=== PATIENT | male | born 1950 | race Caucasian/White ===

== ENCOUNTER 2019-10-28 12:33 | Inpatient (IN) | payer MEDICARE ==
[2019-10-28] MEDS ORDERED: Iopamidol-370 76% 500 ML 1 ML ONE (12:43)
[2019-10-28] MEDS ORDERED: Midazolam HCl 5 mg/ml Vial ONE (12:47)
[2019-10-28] MEDS ORDERED: fentaNYL Citrate/PF 2,000 MCG in Sodium Chloride 0.9% 60 ML IV SCH ×2 (12:48→16:12)
[2019-10-28 12:59] LABS: Hemoglobin 17.9 g/dL (14.0-18.0); Mean Corpuscular Hemoglobin 29.9 pg (27.0-31.0); Mean Corpuscular Volume 93.3 fL (78.0-98.0); Mean Platelet Volume 7.5 fL (7.4-10.4); Platelet Count 352 thou/uL (130-400); Red Blood Cell (RBC) Count 5.99 mill/uL (4.70-6.10); White Blood Cell (WBC) Count 22.5 thou/uL (4.8-10.8)
--- NOTE | 2019-10-28 12:59 | RAD ---
Chest one view HISTORY: Respiratory failure. FINDINGS: There is leftward deviation of the cardiac silhouette and mediastinum. Right lung is comple tely collapsed. Gas within the right pleural cavity extends across the midline into the left hemithorax. There is crowding of the pulmonary vessels at the left lung. Tip of nasogastric tube overlies the thoracic inlet just to the left of midline. IMPRESSION: Very large right tension pneumothorax. Findings were called to Dr. Christianson in the emergency department at 1239 hours. Code CR.
[2019-10-28 13:12] LABS: Actual Bicarbonate (HCO3a) 23.9 mEq/L (22-28); Analyzer IN Cardio ER; Base Excess (BEa) -4.2 mEq/L (-2.0 to +3.0); CO2 Tension 54.4 mmHg (35.0-45.0); Calcium, Ionized 1.17 mmol/L (1.12-1.30); O2 Tension (PaO2) 101.7 mmHg (> 80.0); Potassium - ABG Lab 4.53 mmol/L (3.70-5.30); pH, Arterial 7.26 (7.35-7.45)
[2019-10-28 13:16] LABS: Puncture Site LBA
[2019-10-28 13:18] LABS: ALT (SGPT) 115 U/L (8-55); AST (SGOT) 87 U/L (5-34); Albumin 4.4 g/dL (3.4-4.8); Alkaline Phosphatase 119 U/L (40-110); Anion Gap 21 mmol/L (10-20); BUN (Urea Nitrogen) 20 mg/dL (8.4-25.7); Bilirubin, Total 0.5 mg/dL (0.2-1.2); CK (CPK) 267 U/L (30-200); Calc. Creatinine Clearance 0 mL/min (70-130); Calcium 9.2 mg/dL (7.8-10.44); Carbon Dioxide 23 mmol/L (23-31); Chloride 95 mmol/L (98-107); Estimated GFR-MDRD 38; Globulin 3.4 g/dL (2.4-3.5); Lipase 52 U/L (8-78); Protein, Total 7.8 g/dL (5.8-8.1); Sodium 134 mmol/L (136-145)
[2019-10-28 13:25] LABS: Band 3 % (5-11); Lymphocytes 14 % (21-51); MDiff Complete? YES; Metamyelocyte 1 % (0-0); Myelocyte 1 % (0-0); Neutrophil 81 % (42-75); RBC Morphology Normal
[2019-10-28 13:27] LABS: Glucose 277 mg/dL (80-115)
[2019-10-28] MEDS ORDERED: Norepinephrine 8 MG/0.9% NS 0 ML ONE (13:42)
[2019-10-28] MEDS ORDERED: Diltiazem 125 MG/25 ML ONE (13:42)
[2019-10-28 13:46] LABS: CKMB 5.6 ng/mL (0-6.6)
--- NOTE | 2019-10-28 14:09 | RAD ---
PORTABLE CHEST: DATE: 10/28/2019. PROVIDED CLINICAL HISTORY: Shortness of breath. FINDINGS: Comparison is made with the examination performed earlier same date. Interval placement of right-lise ed chest tube with reduction in degree of right-sided pneumothorax. Interval placement of enteric ca theter, the distal aspects of which are not well visualized but appear likely below the diaphragm. E ndotracheal tube persists, the tip of which is likely above the amina, though the amina is not well visualized on this exam. The left lung remains clear. IMPRESSION: Reduction in size of right pneumothorax status post chest tube placement. POS: TPC
--- NOTE | 2019-10-28 14:18 | RAD ---
EXAM: CHEST ONE VIEW: 10/28/19 HISTORY: Central line placement. FINDINGS: A right sided central line has been placed with the tip in the superior vena cava. Small caliber righ t Heimlich valve catheter is in place with very minute residual right inferior pneumothorax with some subcutaneous emphysema. NG tube is noted with the tip at the GE junction region and probably should be advanced so that the side hole is completely within the stomach. Endotracheal tube is in satisfact ory location. Minimal streaky linear parenchymal changes in the right lung. No significant acute proc ess in the left chest. IMPRESSION: Small residual right sided pneumothorax following small caliber Heimlich valve catheter placement. Pa tchy parenchymal changes in the right lung probably some partial atelectasis. Stable appearing left c hest. NG tube with the tip just at the GE junction region and should probably be advanced to allow mo re optimal positioning of the side hole entering the stomach. POS: ROBERT
[2019-10-28] MEDS ORDERED: Diltiazem 125 MG in Sodium Chloride 0.9% 100 ML IVPB SCH ×2 (14:45→16:15)
--- NOTE | 2019-10-28 15:05 | CT ---
CT angiogram chest with IV contrast and 3-D imaging HISTORY: Pneumothorax. Chest pain. Dyspnea. Recent surgery. FINDINGS: There is good contrast opacification central pulmonary arteries without filling defect appa rent. Partial opacification of the aortic arch with normal branching great vessels. Minimal pericardial fluid along the superior pericardial reflection. Right thoracostomy tube is in place with large residual right pneumothorax. Extensive atelectasis of the posterior aspect of the right lung which may represent residua of the right lower lobe. Postoperative changes are apparent, with short metallic stent-like objects in the collapsed right pos terior lung tissue. Remaining lung tissue bilaterally shows emphysematous changes with peripheral bullae. Endotracheal catheter is in good CT position with some mucus material at the distal portion. Nasogast benita tube extends into the upper stomach with the proximal port just above the level of the GE junction. IMPRESSION: No CT evidence of pulmonary embolus. Large residual right pneumothorax. Extensive atelectasis at the right lung base with postoperative ch anges/internal stent material. Emphysema. Nasogastric tube should probably be advanced approximately 10 cm for better positioning.
[2019-10-28] MEDS ORDERED: Acetaminophen 325 MG TAB PO PRN (15:55)
[2019-10-28] MEDS ORDERED: Ondansetron ODT 4 MG TAB PO PRN (15:55)
[2019-10-28] MEDS ORDERED: Acetaminophen 650 MG Suppository PR PRN (15:55)
[2019-10-28] MEDS ORDERED: Ondansetron PF 4 MG/2 ML Vial IVP PRN (15:55)
[2019-10-28] MEDS ORDERED: Senokot S 8.6-50 MG TAB PO PRN (15:55)
[2019-10-28] MEDS ORDERED: Guaifenesin DM 100-10/5 ML UDCUP PO PRN (15:55)
[2019-10-28] MEDS ORDERED: Ventilator Sedation Protocol 1 EACH FS SCH (16:00)
[2019-10-28] MEDS ORDERED: Digoxin 0.5 MG/2 ML AMP ONE (16:03)
[2019-10-28] MEDS ORDERED: Lorazepam 2 MG/ML VIAL ONE (16:09)
[2019-10-28] MEDS: Lorazepam 2 MG/ML VIAL SLOW IVP PRN (16:11)
[2019-10-28] MEDS ORDERED: Propofol BOLUS 1,000 MG/100 ML VIAL IV PRN (16:12)
[2019-10-28] MEDS ORDERED: Morphine 2 MG/ML SYRINGE SLOW IVP PRN (16:12)
[2019-10-28] MEDS ORDERED: DISCONTINUE PREVIOUS NARCOTIC PAIN MEDICATIONS AND BENZODIAZEPINES FS SCH (16:12)
[2019-10-28] MEDS ORDERED: Fentanyl BOLUS 250 ML IVPB PRN (16:12)
[2019-10-28] MEDS ORDERED: Digoxin 0.5 MG/2 ML AMP SLOW IVP SCH (16:15)
[2019-10-28] MEDS: Cefepime 1 GM in Sodium Chloride 0.9% 100 ML IVPB SCH (16:23)
[2019-10-28] MEDS: methylPREDNISolone Sod Succ 40 MG VIAL IVP SCH ×2 (16:23→20:34)
[2019-10-28] MEDS: Amiodarone 450 MG in Dextrose 5% in Water 250 ML IVPB SCH ×2 (16:24→22:54)
--- NOTE | 2019-10-28 16:28 | CON ---
DATE OF CONSULTATION: HISTORY OF PRESENT ILLNESS: Jodie Alvarado is a 69-year-old gentleman, who is presently intubated on the vent. History is obtained from talking to his , who states that they live in [facility], they were dropped out of [facility]. About a week ago, he had 8 volume reduction valves inserted in the right lower lobe in [place], 2 removed. He underwent a bronchoscopy and some mucus was siphoned out of his lower lobe where the valves are placed in. According to his , he quit smoking about 10 years ago. Longstanding history of tobacco abuse, at least a pack a day. Previous history of right-sided pneumonia, complicated by pneumothorax 10 years ago. Prior to the valve procedure, he was able to walk maybe 20 feet. Following the procedure, according to the , he was able to walk 50 feet without getting markedly short of breath. This morning, he woke up with marked shortness of breath. X-ray shows right-sided pneumothorax. He was to be life-flighted to [place]. Because of the bad weather, he was transferred over here to [facility] in [place], [place]. PAST MEDICAL HISTORY: As per the , pertinent for hypertension and COPD. CHRONIC MEDICATIONS: 1. Trelegy inhaler. 2. Symbicort inhaler. 3. Rescue inhaler. 4. Low-flow O2. 5. Unknown blood pressure medication. PREVIOUS SURGERIES: He has a history of prostate surgery and penile prosthesis. ALLERGIES: APPARENTLY UNKNOWN. SOCIAL HISTORY: Otherwise unremarkable. REVIEW OF SYSTEMS: Otherwise unobtainable. PHYSICAL EXAMINATION: VITAL SIGNS: His blood pressure is 98/60 systolic. He is on Cardizem 15 mg/hr. His saturations are 98%. His pulse is 120. He is sedated on ventilator. Respiratory rate is 20. CHEST: Decreased breath sounds. No wheezing. CARDIAC: Normal S1 and S2. No gallops. ABDOMEN: No masses. LABORATORY DATA: White count 20,000, hemoglobin 7, hematocrit 55, platelet count 352. PO2 is 101, pCO2 of 54, PH 7.26, 60%, rate of 14, 5 tidal volume. Creatinine 1.78. Troponin is slightly elevated. ALT is elevated at 115. IMAGING STUDIES: Chest x-ray shows the previously described right-sided chest tube. Left lobe was clear. Right-sided nonspecific infiltrates. A small-bore chest tube was inserted. He still got a little bit of residual pneumothorax. He has a set of central line is in place. IMPRESSION: 1. The patient has spontaneous pneumothorax. 2. Multiple endobronchial valves for severe chronic obstructive pulmonary disease, right lower lung 6. 3. Recent supraventricular tachycardia. 4. Hypertension. 5. Former smoker. PLAN: 1. Antibiotics were initiated along with steroids and neb treatments. 2. CV Surgery is consulted to insert a large chest tube since his lung is now re-expanded. 3. Start amiodarone drip. 4. Continue IV fluids, supportive care. When stable, consider transferring back to [facility] as per the family's wishes. TIME SPENT: This is a 45-minute critical time. Job ID: [id number]
[2019-10-28 16:35] LABS: Actual Bicarbonate (HCO3a) 23.9 mEq/L (22-28); Base Excess (BEa) -2.7 mEq/L (-2.0 to +3.0); CO2 Tension 48.1 mmHg (35.0-45.0); Calcium, Ionized 1.12 mmol/L (1.12-1.30); Carboxyhemoglobin (COHb) 0.5 gm% (0.0-3.0); Hemoglobin (Hb) 15.9 g/dL (14.0-18.0); O2 Tension (PaO2) 68.9 mmHg (> 80.0); Potassium - ABG Lab 3.81 mmol/L (3.70-5.30); pH, Arterial 7.31 (7.35-7.45)
[2019-10-28 16:37] LABS: ALV-art Gradient 156.175 (0-20); Puncture Site RR
[2019-10-28] MEDS ORDERED: Lidocaine 1% (PF) 30 ML VIAL ONE (16:38)
[2019-10-28] MEDS: Propofol 1,000 MG/100 ML VIAL IV PRN (16:42)
[2019-10-28 16:50] VITALS: BMI 26.9
--- NOTE | 2019-10-28 17:26 | RAD ---
PORTABLE CHEST ONE VIEW: 10/28/19 HISTORY: Respiratory failure, chest tube insertion FINDINGS/IMPRESSION: Comparison with earlier exam of 1:10 p.m. The right sided pleural catheter has been removed. A right sided chest tube has been placed in the in terim. The remainder of the exam is otherwise stable. POS: OFF
[2019-10-28] MEDS ORDERED: methylPREDNISolone Sod Succ 40 MG VIAL IVP SCH (18:00)
--- NOTE | 2019-10-28 18:35 | HP ---
PRIMARY CARE PHYSICIAN: [facility]. CHIEF COMPLAINT: Pneumothorax, intubated in the field. HISTORY OF PRESENT ILLNESS: The patient was seen on arrival into the ICU. No family at bedside currently. History was obtained from speaking with Dr. Galeas and the ER physician as well as the chart. This is a 69-year-old white male, who lives from [facility]. He had 8 volume reduction valves inserted in his right lower lobe in [place] a week ago, and 2 of them were removed. Also, underwent a bronchoscopy, and some mucus was siphoned out of his lower lobe. After the procedure, his dyspnea on exertion improved, and he was able to walk further without getting short of breath; however, this morning , he woke up with marked shortness of breath. He was noted to have a right-sided pneumothorax and was life-flighted to [place]; however, because of bad weather, they had to redirect here. The patient was reportedly discolored when EMS saw him. He was put on CPAP nonrebreather with no help, and so, he was intubated by EMS on first attempt. He was also noted to be in atrial fibrillation within the 190s initially, down to the 140s to 150s by the time he arrived at our hospital. He did have a chest tube placed with some improvement in the right-sided pneumothorax, but still persistent pneumothorax present. On arrival in our ER, he was stabilized, and Dr. Galeas with Pulmonology was consulted as well as Dr. Doherty with Cardiothoracic Surgery. The patient was admitted and is now in the ICU. PAST MEDICAL HISTORY: 1. COPD. 2. Hypertension. PAST SURGICAL HISTORY: 1. Valves placed in right lower lobe of the lung. 2. Penile implant. 3. Prostatectomy. SOCIAL HISTORY: The patient is a former alcoholic, quit 5 years ago. He used to smoke cigarettes, quit more than 10 years ago. No illicit drug use. He lives with his . He is a full code. His is his medical decision maker. FAMILY HISTORY: Unable to obtain secondary to the patient's sedation and intubation. ALLERGIES: NO KNOWN DRUG ALLERGIES. CURRENT MEDICATIONS: does not have his medications with him right now, but was able to list some of his nebs that he was on for Dr. Galeas including Trelegy inhaler, Symbicort inhaler, rescue inhaler, low-flow O2 at home as needed, and an unknown blood pressure medication. She will try and obtain those medications and bring them to the hospital. REVIEW OF SYSTEMS: Unable to obtain secondary to the patient's mental status and intubation on the vent. PHYSICAL EXAMINATION: VITAL SIGNS: Blood pressure 103/73, pulse 116, O2 saturation 97% on the mechanical ventilator, temperature 98.7. GENERAL: This is a well-developed, well-nourished, white male, who is sedated on the vent. Still able to make some purposeful movements and obey commands when redirected. HEENT: Pupils are equal, round, and reactive to light. Oropharynx with ET tube in place. NECK: Supple. No lymphadenopathy. No thyroid nodules or enlargement. No deviation of the trachea currently. HEART: Irregularly irregular rhythm. Mildly tachycardic. No murmurs. LUNGS: He has decent breath sounds bilaterally, but mildly decreased on the right. No focal crackles or rhonchi. ABDOMEN: Mildly distended. Nontender to palpation. Hypoactive bowel sounds. No organomegaly palpable. EXTREMITIES: No clubbing, cyanosis, or edema. He has good peripheral pulses. SKIN: No rashes or other lesions noted. NEUROLOGIC: The patient is moving all extremities to stimulation. There is no obvious facial droop or lateralizing signs. LABORATORY DATA: CBC with a white blood cell count of 22,000, 81% neutrophils, 3% bands. The rest of his CBC was grossly normal. Arterial blood gas on the vent shows pH of 7.3, pCO2 of 48, and pO2 of 68. Complete metabolic panel is notable for sodium of 134, chloride of 95, anion gap of 21, creatinine of 1.78, glucose of 277, AST of 87, ALT of 115, alkaline phosphatase of 119. Creatine kinase of 267. His troponin was elevated at 0.383. CK-MB was normal at 5.6. CT of the chest/thorax done in the emergency room shows no evidence of pulmonary emboli. There was a large residual right pneumothorax and extensive atelectasis in the right lung base with postoperative changes and internal stent material, also with emphysema. Chest x-ray: I reviewed his chest x-rays done in the emergency room. He had several. Most recent one shows a small residual right-sided pneumothorax after a small-caliber Heimlich valve catheter placed. Also, some patchy parenchymal changes in the right lung, probably partial atelectasis. Stable-appearing chest tube and a right-sided central line with the tip in the superior vena cava. ASSESSMENT: 1. Pneumothorax, status post decompression with chest tube placement. CT Surgery and Dr. Venegas have been consulted. The patient is currently on the ventilator. He is critically ill. He has previously been accepted to his hospital in [place] and will likely need to be transferred there once he can be stabilized enough to either go by [employer] or the weather clears the path to send him via helicopter. I appreciate the assistance of the Pulmonology and CT Surgery. 2. Atrial fibrillation with rapid ventricular response. This is improved with improving of the pneumothorax. No known history of atrial fibrillation before. Likely, due to the stress, pneumothorax, and pre-existing chronic obstructive pulmonary disease. The patient is currently on diltiazem drip with decent control of heart rate and can titrate that up as needed. We will consult Cardiology, Dr. Venegas to assist with management of this patient. 3. Acute myocardial infarction, likely type 2 secondary to severe strain of tachycardia and the pneumothorax. We will continue to monitor cardiac markers and telemetry. 4. Acute respiratory failure with hypoxia and hypercapnea. Intubated and ventilated, Dr. Galeas following. 5. Chronic obstructive pulmonary disease. 6. Hypertension. We will obtain home medication list and treat as needed. 7. Gastrointestinal prophylaxis. Put the patient on Pepcid twice a day. 8. Deep venous thrombosis prophylaxis. Put the patient on enoxaparin subcutaneously daily and sequential compression devices. CODE STATUS: The patient is a full code. His medical decision maker is his , her name is Dipika Alvarado. Job ID: [id number] [facility]
[2019-10-28] MEDS: Bacteriostatic Water 30 ML VIAL FS PRN (20:34)
--- NOTE | 2019-10-28 20:39 | CON ---
DATE OF CONSULTATION: 10/28/2019 I was asked by Dr. Galeas to see Mr. Alvarado post having had a near [id number] arrest. Apparently, he had multiple endobronchial blockers placed as a method of lung volume reduction to treat COPD. Two of these were removed shortly after placement. The patient was at home with his driving when he became short of breath, sweaty and asked for her to call for an ambulance. The ambulance arrived approximately 5 minutes later and intubated him on the scene. He was placed in the helicopter and they tried to fly him to [place] to his primary warehouse driver, but they had difficulty with whether and came here. On his evaluation here, he had a CT angio performed of the chest, which showed no pulmonary embolism, but did show large right pneumothorax, which was confirmed on chest x-ray. He had a small bore right chest tube placed with partial re-expansion of his lung. Dr. Galeas has asked me to see him for chest tube placement. PAST MEDICAL HISTORY: 1. COPD. 2. Hypertension. PAST SURGICAL HISTORY: Unknown. CURRENT MEDICATIONS: Unknown. ALLERGIES: NONE. PHYSICAL EXAMINATION: GENERAL: The patient is sedated, intubated in the ICU. LUNGS: Have equal breath sounds bilaterally. He has a right small bore pneumothorax kit tube, which is on intermittent suction. HEART: Rhythm is regular at this point,-he had atrial fibrillation earlier this afternoon, which he has spontaneously converted from. ABDOMEN: Soft. EXTREMITIES: There is no edema. I have reviewed his CT and chest x-rays. PLAN: Is to replace his right-sided tube with a 28-[place] chest tube. I discussed this with his . Job ID: [id number]
[2019-10-28] MEDS ORDERED: Enoxaparin Sodium 40 MG/0.4 ML SYRINGE SC SCH (21:00)
[2019-10-28] MEDS ORDERED: Famotidine/PF 20 mg/2ml Vial SLOW IVP SCH (21:00)
--- NOTE | 2019-10-28 23:57 | CON ---
DATE OF CONSULTATION: 10/28/2019 INDICATION FOR CONSULTATION: A 69-year-old patient, who has had pneumothorax. He has had multiple problems with his lungs. He has undergone some type of intervention to the lower lung areas, where he has some type of valve placed. Apparently, he has been treated in [place]. This morning, he became markedly short of breath, unable to walk and then was transferred here for chest x-ray. Actually, he was planned to be air flighted to [place] but due to weather, he had to be rerouted here. Chest x-ray shows right-sided pneumothorax. Large chest tube has been placed. During the time of pneumothorax and hypoxemia, he developed atrial fibrillation with rapid ventricular response. Since his chest tube has been in place, hypoxemia has improved. He was started on IV diltiazem, was given one dose of IV digoxin and also has been placed on IV amiodarone. He has converted back to sinus rhythm. At this time, I have seen him. He is in sinus rhythm and according to what I read and the family, he has had no history of atrial fibrillation in the past. PAST MEDICAL HISTORY: Significant for COPD. He has hypertension but no previous cardiac history otherwise that we are aware of. The family is not available at this time, but this is according to the records that I am reviewing and from talking to the nut feeder. He has had prostate surgery, as well as penile prosthesis in the past. ALLERGIES: NONE. MEDICATIONS: Include mainly inhalers and some type of blood pressure medication. SOCIAL HISTORY: Unremarkable. Otherwise unknown. REVIEW OF SYSTEMS: Unobtainable. PHYSICAL EXAMINATION: GENERAL: Reveals an elderly gentleman, who is on the ventilator at this time. Chest tube is in place. He is in sinus rhythm. Blood pressure is on the low side, but has improved. VITAL SIGNS: Blood pressure is low at 88/63, heart rate is in the 70s and sinus rhythm, O2 saturation is 98%, and respiratory rate is 28. HEENT: Shows the head to be normocephalic and atraumatic. Carotid pulses are present. I did not hear any bruits, but there is increased airway noise from the respirator. CHEST: Decreased breath sounds throughout. He has right-sided chest tube in place. CARDIOVASCULAR: Heart rate is regular, but very very distant heart sounds, almost inaudible, but I did not elicit any gross murmurs. ABDOMEN: Unremarkable. Positive bowel sounds are present. EXTREMITIES: Show no clubbing, cyanosis, or edema. Pedal pulses are decreased , but appear to be present. NEUROLOGICAL: Obviously, the patient is on the ventilator and is sedated or at least on the ventilator and appears to be somewhat sedated. LABORATORY DATA: Shows WBC of 22.5, with a hemoglobin 17.9, platelet count was 352,000, hematocrit 55.9. His sodium is 134, potassium 5.0, creatinine 1.78 with BUN of 20. Troponin I was 0.383. CK was 267. His EKG shows sinus rhythm at this time previously when he had atrial fibrillation with rapid ventricular response. There were some minimal nonspecific changes but no ST-segment elevation to indicate myocardial infarction, but certainly his troponin I could be elevated due to rapid ventricular response with atrial fibrillation. Continue to trend these enzymes to ensure he does not have underlying coronary artery disease or may be having small non ST-segment elevation myocardial infarction or type 2 MA. IMPRESSION: 1. Elderly gentleman with pneumothorax with long history of chronic obstructive pulmonary disease. He has been undergoing treatment in [place]. If the weather permits, supposedly he is to be transferred tomorrow back to [place] and we will continue his treatment there. 2. New onset atrial fibrillation, which is converted back to sinus rhythm after being given IV amiodarone. We will continue this medication. He had been also on IV diltiazem. We will discontinue this medication at this time. Should he revert back to atrial fibrillation, we can certainly resume the diltiazem. We will ask for an echocardiogram for evaluation of his left ventricular function and also the left atrial size. 3. Hypertension. He is actually hypotensive at this time. He is not on any significant medications except he had been on the diltiazem to decrease the heart rate and this has now been held. He is not on any other medications that should be lowering his blood pressure, from the Diprivan perhaps. We are more than happy to continue to follow the patient with you but at this time, cardiac status appears to be stable after he is converted back to sinus rhythm. Job ID: [id number] [facility]
[2019-10-29] MEDS: Propofol 1,000 MG/100 ML VIAL IV PRN ×2 (00:54→07:36)
[2019-10-29] MEDS: Cefepime 1 GM in Sodium Chloride 0.9% 100 ML IVPB SCH (04:26)
[2019-10-29] MEDS: Bacteriostatic Water 30 ML VIAL FS PRN (04:27)
[2019-10-29] MEDS: methylPREDNISolone Sod Succ 40 MG VIAL IVP SCH ×2 (04:27→10:11)
[2019-10-29 05:36] LABS: Anion Gap 12 mmol/L (10-20); BUN (Urea Nitrogen) 20 mg/dL (8.4-25.7); Calc. Creatinine Clearance 73 mL/min (70-130); Calcium 8.3 mg/dL (7.8-10.44); Carbon Dioxide 28 mmol/L (23-31); Chloride 99 mmol/L (98-107); Estimated GFR-MDRD 59; Glucose 154 mg/dL (80-115); Sodium 135 mmol/L (136-145)
[2019-10-29 05:37] LABS: #Lymphocytes 0.8 thou/uL (1.20-3.40); #Monocytes 0.7 thou/uL (0.11-0.59); %Basophils 0.1 % (0.0-1.0); %Eosinophils 0.1 % (0.0-10.0); %Lymphocytes 5.4 % (21.0-51.0); %Monocytes 4.6 % (0.0-10.0); %Neutrophils 89.8 % (42.0-75.0); Hemoglobin 14.8 g/dL (14.0-18.0); Mean Corpuscular HGB CONC 33.1 g/dL (32.0-36.0); Mean Corpuscular Hemoglobin 30.7 pg (27.0-31.0); Mean Corpuscular Volume 92.8 fL (78.0-98.0); Mean Platelet Volume 7.6 fL (7.4-10.4); Platelet Count 232 thou/uL (130-400); RBC Distribution Width 12.1 % (11.5-14.5); Red Blood Cell (RBC) Count 4.82 mill/uL (4.70-6.10); White Blood Cell (WBC) Count 14.5 thou/uL (4.8-10.8)
[2019-10-29 06:55] VITALS: BP 91/60
[2019-10-29 06:57] LABS: Actual Bicarbonate (HCO3a) 24.8 mEq/L (22-28); Base Excess (BEa) 0.7 mEq/L (-2.0 to +3.0); CO2 Tension 38.1 mmHg (35.0-45.0); Calcium, Ionized 1.15 mmol/L (1.12-1.30); Carboxyhemoglobin (COHb) 0.8 gm% (0.0-3.0); Hemoglobin (Hb) 14.8 g/dL (14.0-18.0); O2 Tension (PaO2) 72.5 mmHg (> 80.0); Potassium - ABG Lab 4.09 mmol/L (3.70-5.30); pH, Arterial 7.43 (7.35-7.45)
[2019-10-29 06:58] LABS: ALV-art Gradient 165.075 (0-20); Puncture Site RRA
--- NOTE | 2019-10-29 07:48 | PDOC.CPN ---
- Subjective Date: 10/29/19 Time: 08:00 Interval history: The pt seen and examined. No overnight events. No Cardiac complaints. Still intubated with vent sedation, but he can write to communicate - Objective Allergies/Adverse Reactions: Allergies Allergy/AdvReac Type Severity Reaction Status Date / Time No Allergy Information Allergy Unverified 10/28/19 12:48 Available Visit Medications: Current Medications Acetaminophen (Tylenol) 650 mg PO Q4H PRN PRN Reason: Headache/Fever/Mild Pain (1-3) Acetaminophen (Tylenol) 650 mg IA Q4H PRN PRN Reason: Headache/Fever/Mild Pain (1-3) Albuterol/Ipratropium (Duoneb) 3 ml NEB [id number] MARIAMA Last Admin: 10/29/19 06:47 Dose: 3 ml Enoxaparin Sodium (Lovenox) 40 mg SC 2100 MARIAMA Last Admin: 10/28/19 19:38 Dose: 40 mg Famotidine (Pepcid) 20 mg SLOW IVP 2100 MARIAMA Last Admin: 10/28/19 19:38 Dose: 20 mg Guaifenesin/Dextromethorphan (Robitussin Dm) 15 ml PO Q4H PRN PRN Reason: Cough Amiodarone HCl 450 mg/ (Dextrose/Water) 259 mls @ 0 mls/hr IVPB INF MARIAMA; Protocol Last Admin: 10/28/19 22:54 Dose: 259 mls Cefepime HCl 1 gm/ Sodium (Chloride) 100 mls @ 200 mls/hr IVPB 0400,1600 MARIAMA Last Admin: 10/29/19 04:26 Dose: 100 mls Diltiazem HCl 125 mg/ Sodium (Chloride) 125 mls @ 5 mls/hr IVPB INF MARIAMA; Protocol Fentanyl Citrate 2,000 mcg/ (Sodium Chloride) 100 mls @ 0 mls/hr IV INF MARIAMA; Protocol Stop: 11/27/19 16:12 Fentanyl Citrate (Fentanyl Bolus) 250 mls @ 0 mls/hr IVPB PRN PRN PRN Reason: Breakthrough pain/agitation Stop: 11/27/19 16:12 Lorazepam (Ativan) 2 mg SLOW IVP Q1H PRN PRN Reason: Breakthrough agitation Stop: 11/27/19 16:12 Last Admin: 10/28/19 16:11 Dose: 2 mg Methylprednisolone Sodium Succinate (Solu-Medrol) 40 mg IVP 0400,1000,1600, 2200 MARIAMA Last Admin: 10/29/19 04:27 Dose: 40 mg Morphine Sulfate (Morphine) 2 mg SLOW IVP Q1H PRN PRN Reason: BREAKTHROUGH PAIN/Agitation Stop: 11/27/19 16:12 Discontinue Previous Narcotic Pain Medications And Benzodiazepines 1 each FS .ONE MARIAMA Stop: 11/27/19 16:12 Ondansetron HCl (Zofran Odt) 4 mg PO Q6H PRN PRN Reason: Nausea/Vomiting Ondansetron HCl (Zofran) 4 mg IVP Q6H PRN PRN Reason: Nausea/Vomiting Propofol (Diprivan) 1,000 mg IV INF PRN; Protocol PRN Reason: TO ACHIEVE GOAL RASS Stop: 11/27/19 16:12 Last Admin: 10/29/19 07:36 Dose: 1,000 mg Propofol (Diprivan Bolus) 20 mg IV Q5MIN PRN PRN Reason: BREAKTHROUGH AGITATION Stop: 11/27/19 16:12 Senna/Docusate Sodium (Senokot S) 2 tab PO BIDPRN PRN PRN Reason: Constipation Sterile Water (Bacteriostatic Water) 1 ml FS PRN PRN PRN Reason: RECONSTITUTION Last Admin: 10/29/19 04:27 Dose: 1 ml Vital Signs & Weight: Vital Signs Temp Pulse Resp BP Pulse Ox 10/29/19 06:48 80 91/60 10/29/19 06:47 71 20 99 10/29/19 06:00 20 10/29/19 04:00 98.6 F 20 10/29/19 02:41 65 20 100 10/29/19 02:00 20 10/29/19 00:00 97.7 F 20 10/28/19 22:24 67 20 100 10/28/19 22:00 20 10/28/19 20:00 98.9 F 20 100 10/28/19 19:47 75 20 99 Weight 198 lb 13.711 oz - Physical Exam General: alert & oriented x3 HEENT: mucus membranes moist Neck: supple neck Cardiac: regular rate and rhythm, S1/S2 Lungs: decreased breath sounds - Labs Result Diagrams: 10/29/19 04:32 10/29/19 03:30 Troponin/CKMB CK-MB (CK-2) 5.6 ng/mL (0-6.6) 10/28/19 12:45 Troponin I 0.383 ng/mL (< 0.028) H* 10/28/19 12:45 - Telemetry Sinus rhythms and dysrhythmias: sinus rhythm - Assessment/Plan Assessment/Plan: 1. New-onset Afib with RVR - converted back to SR on 10/28/2019; On Amiodarone 0.5mg/min; On Lovenox qd for now 2/2 high risk of bleeding from CT site 2. Rt side Pneumothorax - with CT with suction 3. COPD 4. HTN - hypotensive; off Diltiazem drip MAR reviewed * Plan for tx to [place]
--- NOTE | 2019-10-29 08:11 | RAD ---
Portable frontal chest radiograph: 10/29/2019 COMPARISON: 10/28/2019 HISTORY: Ventilated patient FINDINGS: Endotracheal tube, nasogastric tube, right vascular catheter, and right-sided chest tube in stable position. There is inferior left chest wall subcutaneous emphysema, increased in volume since the prior exam. Nonspecific airspace disease noted in the lung bases, unchanged. IMPRESSION: No significant interval change aside from increased subcutaneous gas within the right [address]ton[address] st wall.
[2019-10-29] MEDS: Lorazepam 2 MG/ML VIAL SLOW IVP PRN (08:16)
--- NOTE | 2019-10-29 08:20 | PRG ---
DATE OF SERVICE: 10/29/2019 SUBJECTIVE: Jodie Alvarado this morning is awake, alert, responsive. X-ray shows improvement in his pneumothorax, right-sided density probably from multiple valves. OBJECTIVE: VITAL SIGNS: Pulse 88, blood pressure 96/48, saturations are 98%, and respiratory rate 22. CHEST: Decreased breath sounds. No wheezing. CARDIAC: Normal S1 and S2. No gallops. ABDOMEN: Soft. NEUROLOGIC: Awake, alert, responsive. Very appropriate. LABORATORY DATA: White count 14,000, platelet count is normal. PO2 is 72, pCO2 is 38, pH of 7.43, rate of 20, 40%. Lytes are normal. ASSESSMENT: 1. Chronic obstructive pulmonary disease with spontaneous pneumothorax. 2. Multiple Bentley valves, right lower lung. 3. Supraventricular tachycardia. PLAN: We will try and hopefully wean and extubate. Otherwise, continue PT, supportive care. He will be transferred eventually to [place]. This is one-half hour of critical care time. Job ID: [id number]
[2019-10-29 08:27] LABS: Troponin I 1.151 ng/mL (< 0.028)
--- NOTE | 2019-10-29 10:53 | OP ---
DATE OF PROCEDURE: 10/28/2019 PREOPERATIVE DIAGNOSIS: Right spontaneous pneumothorax with history of chronic obstructive pulmonary disease and instrumentation. POSTOPERATIVE DIAGNOSIS: Right spontaneous pneumothorax with history of chronic obstructive pulmonary disease and instrumentation. PROCEDURES PERFORMED: Right chest tube placement. ANESTHESIA: 1% lidocaine for local with propofol sedation. DESCRIPTION OF PROCEDURE: The right chest wall was prepped and draped in usual sterile fashion. Skin, subcutaneous tissue, and pericostal tissue were anesthetized with 1% lidocaine. Skin incision was made and sharp dissection used to enter the chest cavity. A 28-Urdu chest tube easily passed towards the apex. It was secured at 14 cm on the tube. The previous tube was removed and the current tube was connected to continuous suction at 20 cm water. The tube was dressed. Follow up chest x-ray shows good re-expansion of lung. Job ID: [id number]
[2019-10-29 10:57] VITALS: TEMP 99.7
[2019-10-29] MEDS ORDERED: Famotidine/PF 20 mg/2ml Vial SLOW IVP SCH (21:00)
== END 2019-10-29 12:35 | disposition critical access hospital (66) | DRG 208 ==
LOC: EDBD 12:33 → ERS 12:33 → CCU 12:40
PROVIDERS: ADMIT Emergency Medicine; ATTEND Emergency Medicine
PROC: 0W9930Z Drainage of Right Pleural Cavity with Drainage Device, Percutaneous Approach (ICD-10-PCS; principal; 2019-10-28)
PROC: 5A1945Z Respiratory Ventilation, 24-96 Consecutive Hours (ICD-10-PCS; 2019-10-28)
PROC: 0BH17EZ Insertion of Endotracheal Airway into Trachea, Via Natural or Artificial Opening (ICD-10-PCS; 2019-10-28)
DX: J93.0 Spontaneous tension pneumothorax (principal); R40.2312 Coma scale, best motor response, none, at arrival to emergency department; R40.2112 Coma scale, eyes open, never, at arrival to emergency department; R40.2212 Coma scale, best verbal response, none, at arrival to emergency department; J96.21 Acute and chronic respiratory failure with hypoxia; J96.22 Acute and chronic respiratory failure with hypercapnia; I21.A1 Myocardial infarction type 2; I47.1 Supraventricular tachycardia; J93.9 Pneumothorax, unspecified; I48.91 Unspecified atrial fibrillation; J44.9 Chronic obstructive pulmonary disease, unspecified; I10 Essential (primary) hypertension; Z87.891 Personal history of nicotine dependence; Z98.890 Other specified postprocedural states; Z79.899 Other long term (current) drug therapy; I95.9 Hypotension, unspecified
CPT/HCPCS: 32551; 36556; 51702; 71045; 71275; 80048; 80053; 82550; 82553; 82805; 83690; 84484; 85025; 93005; 94002; 94003; 94640; 94760; 96365; 96366; 96367; 96374; 96375; J0282; J0692; J1160; J1650; J2001; J2060; J2250; J2704; J2920; J3010; J3490; J7070; J7620; Q9967; S0028

== ENCOUNTER 2022-01-19 08:32 | Day surgery (SDC) | payer MEDICARE ==
[2022-01-17 09:55] VITALS: BMI 24.4
[2022-01-19] MEDS ORDERED: PROPOFOL 200 MG/20 ML VIAL ONE (09:09)
== END 2022-01-19 10:13 | disposition home or self-care (01) ==
LOC: SDC 08:32
PROVIDERS: ATTEND Internal Medicine Cardiovascular Disease
PROC: B246ZZ4 Ultrasonography of Right and Left Heart, Transesophageal (ICD-10-PCS; principal; 2022-01-19)
DX: I48.0 Paroxysmal atrial fibrillation (principal); I47.1 Supraventricular tachycardia; I49.3 Ventricular premature depolarization; J44.9 Chronic obstructive pulmonary disease, unspecified; I10 Essential (primary) hypertension; E78.5 Hyperlipidemia, unspecified; Z87.891 Personal history of nicotine dependence; Z79.02 Long term (current) use of antithrombotics/antiplatelets; Z79.82 Long term (current) use of aspirin; Z79.899 Other long term (current) drug therapy; Z95.818 Presence of other cardiac implants and grafts
CPT/HCPCS: 93312; J2704